=== PATIENT | female | born 1995 | race Caucasian/White ===

== ENCOUNTER 2021-07-26 03:43 | Inpatient (IN) | payer OTHER ==
--- OUTSIDE RECORDS SUMMARY | 2021-07-26 03:46 | XMS REPORT | Continuity of Care Document ---
:1995 Author Organization [facility] Address [address] [place] [address] Dr. White [address] [place] [id number] Care Team Providers Name Role Phone Saleem Neida Simmons Attending Clinician Payers Payer Name Policy Type Policy Number Effective Date Expiration Date S ource Problems Condition Condition Condition Status Onset Resolution Last Treating Co mments Source Name Details Category Date Date Treatment Clinician Date Migraine Migraine Disease Active Unive rs with aura with aura 5-12 ity of and and 00:00: [place] without without 00 Medical status status Branch migrainosu migrainosu s, not s, not intractabl intractabl e e Encounter Encounter Disease Active Uni vers for for 5-10 ity of gynecolog[place] son[place] sonja 00 Medical examinatio examinatio Br anch n n Absence of Absence of Disease Active Overview : Univers menstruati menstruati 5-10 Records i ty of on on 00:00: from [place] 00 [facility] care scanned to record; OTC Lo for amenorrhe a last seen 06/04/2015 ; no [facility] report receivedS ee consult recommend ations from Dr. Aguiar 08/03/2018 Body mass Body mass Disease Active Uni vers index index 5-10 ity of (bmi) (bmi) 00:00: [place] 31.0-31.9, 31.0-31.9, 00 Me dical adult adult Branch Tight Tight Disease Active Univers introitus introitus 5-10 ity of 00:00: [place] 00 [facility] Allergies, Adverse Reactions, Alerts This patient has no known allergies or adverse reactions. Social History Social Habit Start Date Stop Date Quantity Comments Source Alcohol intake [facility] Sex Assigned At Uni versity [facility] Smoking Status Start Date Stop Date Source Never smoker [facility] Medications Ordered Filled Start Stop Current Ordering Indication Dosage Frequency Signature Comments Components Source Medication Medication Date Date Medication? Clinician (SIG) Name Name No known No Univers medications [facility] No known No Univers medications [facility] Procedures This patient has no known procedures. 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
[2021-07-26] MEDS ORDERED: Ringers Lactate 1,000 ML IV ONE (04:43)
[2021-07-26] MEDS ORDERED: BUTORPHANOL 1 MG/ML INJ IV PRN (05:06)
[2021-07-26] MEDS ORDERED: CARBOPROST TROME 250 MCG/ML IM PRN (05:06)
[2021-07-26] MEDS ORDERED: Ringers Lactate 1,000 ML IV PRN (05:06)
[2021-07-26] MEDS ORDERED: METHYLERGONOVINE 0.2MG/ML AMP IM PRN (05:06)
[2021-07-26] MEDS ORDERED: PROMETHAZINE INJ 25 MG/ML AMP IM PRN (05:23)
[2021-07-26 05:35] VITALS: BMI 33.4
[2021-07-26 05:39] LABS: Urine Appearance Clear (Clear); Urine Bilirubin Negative (Negative); Urine Blood Trace-intact (Negative); Urine Color Yellow (Yellow); Urine Glucose Negative (Negative); Urine Protein Negative (Negative); Urine Urobilinogen 0.2 mg/dL (0.2-1.0); Urine pH 6.5 (5.0-7.0)
[2021-07-26 05:43] LABS: Urine Microscopic Reflex ORDER UMIC
[2021-07-26 05:43] LABS: Absolute Lymphocytes (CBC) 2.3 K/uL (0.7-4.9); Hematocrit 31.5 % (36.0-45.0); Lymphocytes % 21.6 % (15.3-44.8); MPV 9.6 fL (7.6-11.3); RBC Red Blood Cell Count 4.04 M/uL (3.86-4.86)
[2021-07-26 05:51] LABS: Urine Bacteria 20-50 /HPF (<20)
[2021-07-26 05:52] LABS: Urine RBC NONE SEEN /HPF (NONE SEEN)
[2021-07-26] MEDS ORDERED: OXYTOCIN/LR 20 UNIT/1,000 ML BAG IV SCH ×2 (06:00→19:00)
[2021-07-26] MEDS ORDERED: Ringers Lactate 1,000 ML IV SCH (06:00)
[2021-07-26] MEDS ORDERED: ROPIVACAINE HCL 0.2% 20ML AMP IV ONE (10:24)
[2021-07-26] MEDS ORDERED: FENTANYL CITR 100 MCG/2 ML IV ONE (10:24)
[2021-07-26] MEDS ORDERED: BUPIVACAINE 0.25% PF 10 ML VIAL IJ PRN (10:24)
[2021-07-26] MEDS ORDERED: ROPIVACAINE HCL 0.2% 20ML AMP EP ONE (10:26)
[2021-07-26] MEDS ORDERED: 0.2% ROPIVACAINE (200 MG/100 ML) BAG EP ONE (10:29)
--- NOTE | 2021-07-26 11:08 | PREOPHP ---
Date of Admission: 07/26/2021 History Of Present Illness: A 26-year-old, primigravida, 39 weeks 1 day, followed antepartum without complications. Rh positive, immune to rubella, negative strep, negative COVID. Family History: Maternal grandmother with hypertension. Mother with stomach ulcers and aunt with di abetes. Otherwise noncontributory. Past Medical History: No serious medical illnesses. Past Surgical History: No surgery. Allergies: NO ALLERGIES. Medications: vitamins taken prior to admission, although the patient apparently has not bee n taking them regularly and is admitted with mild anemia. Social History: She does not smoke. Physical Examination: HEENT: Clear. Pupils equal, round, reactive to light and accommodation. Conjunctivae well perfused . No oral, lingual, or buccal lesions. Chest and Lungs: Clear. Heart: Without murmurs, thrills, heaves, or rubs. Breasts: Without masses on previous visits. Abdomen: Term size. Baby is vertex. Cervix is 2 cm, 60% to 70% effaced, vertex -1 station, rupture of membranes, clear fluid. Extremities: Clear without edema, cyanosis, or clubbing. Assessment And Plan: FHTs normal, reactive. She is ilene regularly. We will expect to see ni sometime later today. SUNITHA/VERA Voice ID: [id number]
[2021-07-26] MEDS ORDERED: NA CIT/CITRIC AC 30 ML ORAL UDC PO ONE (14:36)
[2021-07-26] MEDS ORDERED: FAMOTIDINE 20 MG/2 ML VIAL IV SCH (14:38)
[2021-07-26] MEDS ORDERED: CEFAZOLIN/SWI 2gm 2 GM/20 ML SYR IVP SCH ×2 (14:45→18:45)
[2021-07-26] MEDS ORDERED: LIDOCAINE 1% MPF 30 ML VIAL ONE (14:56)
[2021-07-26] MEDS ORDERED: METOCLOPRAMIDE 10 MG/2mL INJ IV SCH (15:00)
[2021-07-26] MEDS ORDERED: Oxycodone HCl/Acetaminophen 1 TAB TAB PO PRN (18:07)
[2021-07-26] MEDS ORDERED: ACETAMINOPHEN 500 MG TAB PO PRN (18:07)
[2021-07-26] MEDS ORDERED: BISACODYL 10 MG RECTAL SUPP PR PRN (18:07)
[2021-07-26] MEDS ORDERED: DOCUSATE NA/SENNA CONC 1 TAB PO PRN (18:07)
[2021-07-26] MEDS ORDERED: DIPHENHYDRAMINE 25 MG TAB/CAP PO PRN (18:07)
[2021-07-26] MEDS: IBUPROFEN 200 MG TAB PO PRN (18:45)
[2021-07-26] MEDS ORDERED: [UNRECOGNIZED DRUG - OTHER] IV ONE (19:48)
--- NOTE | 2021-07-26 20:44 | PN ---
The patient has just a rim of cervix. I think the baby is posterior. She is very comfortable. Baby looks much better now. Had a little deceleration earlier but now is back to normal. The Pitocin wa s shut off. We will turn it back on at 2 milliunits, it was on 12 prior. As soon as that rim of cer vix clears, we will start pushing, although the patient really still has not got the urge. We will c ut the epidural from 10-8 maintenance dose and see if that helps. SUNITHA/VERA Voice ID: [id number] Report ID: [id number]
[2021-07-27 00:34] LABS: RPR (Rapid Plasma Reagin) NON-REACT (NON-REACT)
--- NOTE | 2021-07-27 02:00 | OP ---
Surgeon: Be Rios MD History: A 26-year-old primigravida at 39 weeks 1 day, came in for labor induction approximately 2 t o 2.5 cm this morning, rupture of membranes, clear fluid. Stadol IV 1 mg, Phenergan 25 mg IM, at 3 c m requested and received epidural anesthesia. Second stage for approximately 2 hours, only about an hour and 15 minutes of effective pushing, epidural was allowed to slightly wear off. With vacuum ass istance, she delivered an 8-pound 1-ounce male , Apgars 9 and 9, Dr. Harris, pediatric attend [facility]. Midline second-degree laceration, simulating episiotomy repaired with 2-0 chromic as well as a right lateral wall laceration joined with the laceration at the posterior fourchette. Jovana harkins of the placenta, which was inspected and noted to be intact and normal. Estimated blood loss 35 0 cc. The patient was given 2 g of Ancef for prophylaxis. Tolerated all procedures well. Final Diagnoses: Term intrauterine , labor induction, vaginal delivery 39 weeks 1 day, epid ural anesthesia, vacuum-assisted operative vaginal delivery. SUNITHA/VERA Voice ID: [id number] Report ID: [id number]
[2021-07-27] MEDS: Oxycodone HCl/Acetaminophen 1 TAB TAB PO PRN ×3 (03:04→19:32)
[2021-07-27] MEDS: IBUPROFEN 200 MG TAB PO PRN (08:30)
[2021-07-27 16:56] VITALS: BP 104/57; TEMP 96.9
[2021-07-27] MEDS ORDERED: IBUPROFEN 600 MG TAB PO PRN (17:00)
--- NOTE | 2021-07-28 04:03 | DS ---
Date of Discharge: 07/27/2021 Hospital Course: Sheree Bartlett, 26-year-old, primigravida, 30 and 9 weeks and 1 day delivered of 8 pounds 1 ounce male , Apgars 9 and 9, second stage of about at 2 hours vacuum assisted delivery . Two small second-degree laceration, repaired with 2-0 chromic. Schultze delivery of the placenta, was inspected, noted to be intact and normal, 350 cc or less blood loss. Rh positive, immune to rub gisele. Negative strep. Negative COVID. Ancef 2 g was given for prophylaxis with the lacerations. Du ring the labor, she received Stadol 1 mg IV, Phenergan 25 mg IM, and then epidural anesthesia. This morning, is afebrile ambulating, voiding. Lochia is normal. The patient took a questionnaire and ap parently has had depression, but has not voiced any concerns, is not suicidal. She will talk to soci al services this morning. If she desires any medicines, of course she can let us know, but right now she requests nothing. Final Diagnoses: Term intrauterine 39 weeks 1 day, vaginal delivery, epidural anesthesia. Operative vaginal delivery, vacuum assisted delivery. Maternal depression, not suicidal. SUNITHA/VERA Voice ID: [id number] Report ID: [id number]
--- NOTE | 2021-07-28 10:33 | PN ---
The patient is still comfortable. We have moved the epidural maintenance dose from 8 to 7. She is o n 2 milliunits of Pitocin. Baby is at +1 station. She will begin pushing now with each contraction. Full discussion. SUNITHA/VERA Voice ID: [id number] Report ID: [id number]
--- NOTE | 2021-07-28 10:33 | PN ---
The patient is now comfortable with her epidural. She is 3 to 3-1/2, 90% effaced, vertex 0 station. FHT still looked good. She says she really cannot feel much of anything. We will see during next h ours the epidural back from 10-8 maintenance dose, but right now we will leave the way it is. Anticipate more rapid progress soon. SUNITHA/VERA Voice ID: [id number] Report ID: [id number]
== END 2021-07-27 20:34 | disposition home or self-care (01) | DRG 807 ==
LOC: 2ND-WC 03:43
PROVIDERS: ADMIT Specialist; ATTEND Specialist
PROC: 10D07Z6 Extraction of Products of Conception, Vacuum, Via Natural or Artificial Opening (ICD-10-PCS; principal; 2021-07-26)
PROC: 0KQM0ZZ Repair Perineum Muscle, Open Approach (ICD-10-PCS; 2021-07-26)
PROC: 10907ZC Drainage of Amniotic Fluid, Therapeutic from Products of Conception, Via Natural or Artificial Opening (ICD-10-PCS; 2021-07-26)
DX: O70.1 Second degree perineal laceration during delivery (principal); Z37.0 Single live birth; Z3A.39 39 weeks gestation of pregnancy; O99.340 Other mental disorders complicating pregnancy, unspecified trimester; Z20.822 Contact with and (suspected) exposure to COVID-19
CPT/HCPCS: 36415; 81003; 81015; 85025; 86592; 86850; 86900; 86901; 87086; 87088; J0595; J0690; J2210; J2550; J2590; J2765; J2795; J3010; J3490; J7120; U0003